=== PATIENT | female | born 1960 | race Caucasian/White ===

== ENCOUNTER 2017-07-02 15:59 | Outpatient (CLI) | payer OTHER ==
[2017-07-02 16:54] LABS: BASOPHILS % 0.7 (0.0-1.5); EOSINOPHILS % 3.5 % (0.0-6.8); MEAN CORPUSCULAR HEMOGLOBIN 30.8 pg (28.0-34.0); MEAN CORPUSCULAR VOLUME 93.1 fl (80.0-100.0); MONOCYTES % 5.1 % (0.0-11.0); NEUTROPHILS # 2.4 # k/uL (1.4-7.7)
[2017-07-02 17:13] LABS: eGFR (African) > 60; eGFR (Non-African) > 60
== END 2017-07-02 16:05 ==
LOC: LAB 15:59
PROVIDERS: ATTEND Physician Assistant
DX: Z00.00 Encounter for general adult medical examination without abnormal findings (principal); E78.1 Pure hyperglyceridemia
CPT/HCPCS: 36415; 80053; 80061; 84443; 85025

== ENCOUNTER 2017-08-29 11:46 | Outpatient (CLI) | payer OTHER ==
--- NOTE | 2017-08-29 18:25 | Diagnostic Imaging Report ---
BENITO LEW [facility] [address] [facility] [address] [address] Report Submission Date: Aug 29, 2017 1:46:17 PM CDT Patient Study Name: CARMEN NAVARRO Date: Aug 29, 2017 1:22:53 PM CDT Modality Type: DX Gender: F Description: SPINE : 62 Institution: [facility] Physician: BENITO LEW Lumbar spine History: Low back pain AP and lateral projections of the lumbar spine were obtained which demonstrate normal alignment. There is moderate disc space narrowing at L5/S1. Otherwise, vertebral body height and intervertebral disc space height is maintained. There is no spondylolisthesis or spondylolysis. Impression: Moderate disc space narrowing at L5/S1. Otherwise, no osseous abnormality. Electronically signed on Aug 29, 2017 1:46:17 PM CDT by: Yenni GRAYSON
== END 2017-08-29 14:07 ==
LOC: LAB 11:46
PROVIDERS: ATTEND Physician Assistant
DX: M54.5 Low back pain (principal); M25.50 Pain in unspecified joint
CPT/HCPCS: 36415; 72100; 85651; 86038; 86431

== ENCOUNTER 2017-09-03 08:07 | Outpatient (CLI) | payer OTHER ==
--- NOTE | 2017-09-03 12:21 | Diagnostic Imaging Report ---
NOLVIA BROWN [facility] [address] [facility].[address] [address] Report Submission Date: Sep 03, 2017 9:58:43 AM CDT Patient Study Name: CARMEN NAVARRO Date: Sep 03, 2017 8:22:10 AM CDT Modality Type: US Gender: F Description: : 62 Institution: [facility] Physician: NOLVIA BROWN ULTRASOUND ABDOMEN LIMITED HISTORY: Right upper quadrant pain Transverse and longitudinal images were obtained through the right upper quadrant. No pancreatic abnormalities are noted. The liver demonstrates homogeneous echotexture without evident mass. The gallbladder is normal without gallstones or gallbladder wall thickening. The common duct is normal in caliber measuring 2.7 mm. The right kidney measures 10 cm in length and demonstrates no hydronephrosis or evident mass. IMPRESSION: NORMAL RIGHT UPPER QUADRANT ULTRASOUND. Electronically signed on Sep 03, 2017 9:58:43 AM CDT by: Yenni GRAYSON
== END 2017-09-03 08:10 ==
LOC: RAD 08:07
PROVIDERS: ATTEND Physician Assistant
DX: R10.11 Right upper quadrant pain (principal)
CPT/HCPCS: 76705

== ENCOUNTER 2017-09-20 12:11 | Outpatient (CLI) | payer OTHER ==
--- NOTE | 2017-09-20 19:36 | Diagnostic Imaging Report ---
BENITO LEW [facility] [address] [facility] [address] [place], [place]. [address] Report Submission Date: Sep 20, 2017 3:37:48 PM CDT Patient Study Name: CARMEN NAVARRO Date: Sep 20, 2017 2:48:45 PM CDT Modality Type: CT\SR Gender: F Description: CT ABD W/O CONTRAST : 62 Institution: [facility] Physician: BENITO LEW Examination: CT Abdomen/pelvis History: POSSIBLE HERNIA, RUQ, PT STATES SHE CAN FEEL IT POP OUT WHEN SHE TURNS AND THEN FOLLOWED BY PAIN AND SORENESS (Hx) Comparison exams: None available Technique: CT Abdomen/pelvis without IV protocol. Findings: Liver, spleen, adrenals, pancreas, kidneys and gallbladder are without gross irregularity given exam technique. No gallstone. No suspicious renal calcifications. Ureters are nondilated in their course through the abdomen and pelvis. No central calcifications. Bladder margin within normal limits. Abdominal aorta without aneurysm or peripheral atherosclerotic disease. Cardiac silhouette is not enlarged. No pericardial effusion. Bowel unopacified limiting evaluation. No abnormal dilation. Stool within the large bowel limiting sensitivity. No mesenteric inflammatory changes or free fluid. Appendix is visualized and is without inflammatory changes. Few sigmoid diverticula. No adjacent inflammation. No evidence for anterior abdominal wall or inguinal region defect. Osseous structures demonstrate mild L5/S1 degenerative changes. Lung bases demonstrate mild scarring and atelectasis without infiltrate. No effusion. Impression: No abdominal mass or acute inflammatory process. No abnormal bowel dilation or inflammation. Sigmoid diverticula. No adjacent inflammation. No evidence for anterior abdominal wall or inguinal region defect. No gallstone. No suspicious renal calcifications or abnormal ureteric dilation. No lung base consolidation or effusion. Electronically signed on Sep 20, 2017 3:37:48 PM CDT by: Fred GRAYSON
== END 2017-09-20 12:12 ==
LOC: RAD 12:11
PROVIDERS: ATTEND Physician Assistant
DX: K46.9 Unspecified abdominal hernia without obstruction or gangrene (principal)
CPT/HCPCS: 74176